=== PATIENT | male | born 1985 ===

== ENCOUNTER 2017-07-21 19:28 | Emergency (ER) | payer SELFPAY ==
[~2017-07-21] VITALS: Ht 185.4 cm; Wt 95.0 kg
[2017-07-21 19:29] VITALS: BP 121/73; PULSE 67; RESP 16; TEMP 98.7; O2SAT 98
--- NOTE | 2017-07-21 19:59 | PD ---
Physical Exam Time Seen by Provider: 19:58 Narrative 32yo M c/o abscess to R wrist x 2 days. Reoccurs in same spot multiple times. +lymphangitis. Denies fever, vomiting. Denies IVD use. Patient seen in triage. VS reviewed. Awaiting bed placement. Data Data Last Documented VS Vital Signs Date Time Temp Pulse Resp B/P (MAP) Pulse Ox O2 Delivery O2 Flow Rate FiO2 07/21/17 19:29 98.7 67 16 121/73 (89) 98 Room Air MDM Supervised Visit with MIRACLE: Julia Hubbard Jul 21, 2017 19:59
== END 2017-07-21 20:58 | disposition left against medical advice (07) ==
LOC: NED 19:28
DX: L02.413 Cutaneous abscess of right upper limb (principal); I89.1 Lymphangitis
CPT/HCPCS: 99281